=== PATIENT | female | born 1980 | race Hispanic/Latino ===

== ENCOUNTER 2017-10-23 03:09 | Emergency (ER) | payer BC ==
[2017-10-23 03:54] VITALS: BP 130/90; PULSE 100; RESP 18; TEMP 98.6; O2SAT 97
--- NOTE | 2017-10-23 05:12 | ED PDOC ---
Upper Extremity Pain/Injury Time Seen by Provider: 10/23/17 04:13 Chief Complaint (Nursing): Finger,Hand,&Wrist Chief Complaint (Provider): Left Wrist Pain History Per: Patient History/Exam Limitations: no limitations Onset/Duration Of Symptoms: Hrs (around 2300) Additional Complaint(s): 37 year old female presents to the ED for evaluation of 6/10 left wrist pain s/ p a slip and fall around 2300 on an outstretched left hand. Patient states she treated it with 400mg Motrin around 2330. Otherwise, (-) head injury, (-) other complaints. Right hand dominant. PMD: [facility] Past Medical History Reviewed: Historical Data, Nursing Documentation, Vital Signs Vital Signs: Last Vital Signs Temp 98.6 F 10/23/17 03:51 Pulse 100 H 10/23/17 03:51 Resp 18 10/23/17 03:51 BP 130/90 10/23/17 03:51 Pulse Ox 97 10/23/17 03:51 - Medical History PMH: No Chronic Diseases - Surgical History Surgical History: No Surg Hx - Family History Family History: States: Unknown Family Hx - Social History Current smoker - smoking cessation education provided: No (quit 1 week ago) Alcohol: Social Drugs: Denies - Home Medications Home Medications: Ambulatory Orders Medication Instructions Recorded Acetaminophen [Acetaminophen 8 650 mg PO Q8 PRN #21 tablet.er 10/23/17 Hour] Naproxen 500 mg PO BID PRN #20 tab 10/23/17 traMADol [Ultram] 50 mg PO Q6 PRN #12 tab 10/23/17 - Allergies Allergies/Adverse Reactions: Allergies Allergy/AdvReac Type Severity Reaction Status Date / Time No Known Allergies Allergy Verified 10/23/17 03:51 Review of Systems ROS Statement: Except As Marked, All Systems Reviewed And Found Negative Musculoskeletal: Positive for: Other (left wrist pain) Physical Exam - Reviewed Nursing Documentation Reviewed: Yes Vital Signs Reviewed: Yes - Physical Exam Comments: GENERAL APPEARANCE: Patient is awake, alert, oriented x 3, in no acute distress. Resting comfortably. SKIN: Warm, dry; (-) cyanosis. WRIST: (+) Tenderness to ulnar aspect of left wrist, (-) swelling, (-) ecchymosis, (-) erythema, (-) skin break, (-) deformity, (+) Full ROM with pain on supination and pronation. (-) distal neurovascular deficit. Remainder of elbow, hand and digits: (-) tenderness. Cap refill intact. Sensation intact throughout. CHEST AND RESPIRATORY: (-) wheezing; (-) rales, (-) rhonchi, (-) rub; breath sounds equal bilaterally. HEART AND CARDIOVASCULAR: (-) irregularity NEURO AND PSYCH: Mental status as above. Gait: steady. Speech: clear. (-) facial asymmetry (-) aphasia - Laboratory Results Urine POC: Negative - ECG O2 Sat by Pulse Oximetry: 97 (RA) Pulse Ox Interpretation: Normal Medical Decision Making Medical Decision Making: Time: 414 Initial Impression: acute wrist pain s/p fall, sprain vs fracture Initial Plan: -- test --Tylenol 650mg PO --Left wrist XR --Re-evaluation Upreg: Negative 05 Wrist XR: (+) nondisplaced distal radius fracture Volar splint placed by automotive diagnostic technician. Placement and application verified by Bakari Garcia. NV intact after placement. Educated on splint care. On re-evaluation, patient reports improvement of symptoms. On exam, patient remains AAOx3, in no acute distress. Lungs clear to auscultation, cardiac RRR, repeat neuro exam shows no focal findings. VSS, stable for discharge. Lab/Diagnostic results d/w the patient in great detail. Diagnosis of acute wrist pain, distal radius fracture s/p fall d/w the patient. Based on history, exam and diagnostic results, plan will be for outpatient follow up with ortho. Patient instructed to follow-up with pmd / referral provided / the clinic in 1- 2 days without fail. Advised to take medication as prescribed. Return to the emergency room at any time for any new or worsening symptoms. Patient states she fully agrees with and understands discharge instructions. States that she agrees with the plan and disposition. Verbalized and repeated discharge instructions and plan. I have given the patient opportunity to ask any additional questions. Scribe Attestation: Documented by Tere Hand, acting as a scribe for Tiana Villegas PA-C. Provider Scribe Attestation: All medical record entries made by the Scribe were at my direction and personally dictated by me. I have reviewed the chart and agree that the record accurately reflects my personal performance of the history, physical exam, medical decision making, and the department course for this patient. I have also personally directed, reviewed, and agree with the discharge instructions and disposition. Disposition - Clinical Impression Clinical Impression: Distal radius fracture, left, Fall, Wrist pain, acute - Patient ED Disposition Is Patient to be Admitted: No Counseled Patient/Family Regarding: Studies Performed, Diagnosis, Need For Followup, Rx Given - Disposition Referrals: Dave Escamilla III, MD [Staff Provider] - Disposition: Routine/Home Disposition Time: 05:17 Condition: STABLE Additional Instructions: The emergency medical care you received today was directed towards the acute presenting symptoms. If you were prescribed any medication, please fill it and give as directed. It may take several days for your symptoms to resolve. Return to the Emergency Department at any time if symptoms worsen, do not improve, or if any other problems arise. Please contact your doctor in 2 days for re-evaluation and follow up / or call one of the physicians/clinics you have been referred to that are listed on the Patient Visit Information form that is included in your discharge packet. Bring any paperwork you were given at discharge with you along with any medications to your follow up visit. Our treatment cannot replace ongoing medical care by a primary care provider (PCP) outside of the emergency department. Prescriptions: Acetaminophen [Acetaminophen 8 Hour] 650 mg PO Q8 PRN #21 tablet.er PRN Reason: Pain, Moderate (4-7) Naproxen 500 mg PO BID PRN #20 tab PRN Reason: Pain, Moderate (4-7) traMADol [Ultram] 50 mg PO Q6 PRN #12 tab PRN Reason: Pain, Severe (8-10) Instructions: Forearm Fracture (DC), Wrist Fracture (DC), Radius Fracture Forms: [employer] (Kazakh) Print Language: SAMI - POA Present On Arrival: Falls Or Trauma
--- NOTE | 2017-10-23 10:28 | RAD ---
Date of service: 10/23/2017 PROCEDURE: Left Wrist Radiographs. HISTORY: s/p fall, r/o fracture COMPARISON: None. FINDINGS: BONES: Three views of the left wrist were performed for pain. There is evidence of a nondisplaced fracture of the distal left radius which does not appear to be significantly angulated. Visualized carpal bones and metacarpals are intact. Navicular bone is intact. Mild overlying soft tissue swelling is noted. JOINTS: Normal. No dislocation. SOFT TISSUES: Normal. OTHER FINDINGS: None. IMPRESSION: Fracture distal left radius. No preliminary interpretation was submitted by the emergency room department. Therefore this case will be placed in the PA review folder.
== END 2017-10-23 05:35 | disposition home or self-care (01) ==
LOC: H.ER 03:09
DX: S52.502A Unspecified fracture of the lower end of left radius, initial encounter for closed fracture (principal); W19.XXXA Unspecified fall, initial encounter